=== PATIENT | female | born 1995 | race African-American/Black ===

== ENCOUNTER 2016-11-14 19:30 | Emergency (ER) | payer MEDICAID, OTHER ==
[~2016-11-14] VITALS: Ht 167.6 cm; Wt 95.0 kg
[2016-11-14] MEDS ORDERED: ACETAMINOPHEN 325MG TABLET PO STA (23:23)
[2016-11-14 23:53] VITALS: BP 126/75
[2016-11-15 00:05] LABS: BASOPHILS % 0.9 % (0.0-2.0); EOSINOPHILS % 0.9 % (0.0-5.0); HEMATOCRIT. 27.8 % (36.0-48.0); HEMOGLOBIN. 8.3 g/dL (12.0-16.0); LYMPHOCYTES % 30.4 % (20.0-50.0); MEAN CORPUSCULAR HEMOGLOBIN 20.4 pg (28.0-32.0); MEAN CORPUSCULAR VOLUME 67.8 fL (81.0-99.0); MEAN PLATELET VOLUME 7.5 fl (7.4-10.4); NEUTROPHILS % 60.8 % (40.0-76.0); PLATELET 353 x1000/uL (130-400); RED CELL DISTRIBUTION WIDTH 17.6 % (11.6-14.6)
[2016-11-15 00:09] LABS: CHLORIDE 109 mEq/L (98-107)
[2016-11-15 00:15] LABS: CARBON DIOXIDE 26 mEq/L (21-32)
[2016-11-15 00:58] LABS: CLARITY URINE TURBID (CLEAR); COLOR URINE YELLOW (YELLOW); GLUCOSE URINE TRACE (NEGATIVE); KETONES URINE NEGATIVE (NEGATIVE); LEUKOCYTE ESTERASE URINE TRACE (NEGATIVE); NITRITE URINE NEGATIVE (NEGATIVE); OCCULT BLOOD URINE 2+ (NEGATIVE); PROTEIN URINE NEGATIVE (NEGATIVE); SPECIFIC GRAVITY URINE 1.022 (1.005-1.030)
== END 2016-11-15 02:33 | disposition home or self-care (01) ==
LOC: ER 19:42
DX: N39.0 Urinary tract infection, site not specified (principal); R53.1 Weakness; R03.0 Elevated blood-pressure reading, without diagnosis of hypertension; D64.9 Anemia, unspecified; Z87.442 Personal history of urinary calculi; Z86.59 Personal history of other mental and behavioral disorders
CPT/HCPCS: 36415; 76770; 80048; 81001; 81025; 85025; 99285

== ENCOUNTER 2018-10-06 13:57 | Emergency (ER) | payer MEDICAID, OTHER ==
[~2018-10-06] VITALS: Ht 172.7 cm; Wt 82.0 kg
[2018-10-06] MEDS ORDERED: IBUPROFEN 600MG TABLET PO STA (14:45)
[2018-10-06] MEDS ORDERED: SODIUM CHLORIDE 0.9% 1,000 ML IV ONE (14:45)
[2018-10-06 15:16] LABS: CHLORIDE 106 mEq/L (98-107)
[2018-10-06 15:21] LABS: CLARITY URINE CLEAR (CLEAR); COLOR URINE YELLOW (YELLOW); KETONES URINE TRACE (NEGATIVE); LEUKOCYTE ESTERASE URINE NEGATIVE (NEGATIVE); NITRITE URINE NEGATIVE (NEGATIVE); OCCULT BLOOD URINE NEGATIVE (NEGATIVE); PROTEIN URINE NEGATIVE (NEGATIVE); SPECIFIC GRAVITY URINE 1.029 (1.005-1.030); UROBILINOGEN URINE 0.2 E.U./dL (0.2-1.0)
[2018-10-06 15:22] LABS: BASOPHILS % 0.3 % (0.0-2.0); EOSINOPHILS % 0.3 % (0.0-5.0); HEMATOCRIT. 29.9 % (36.0-48.0); HEMOGLOBIN. 9.1 g/dL (12.0-16.0); LYMPHOCYTES % 20.6 % (20.0-50.0); MEAN CORPUSCULAR VOLUME 69.3 fL (81.0-99.0); MEAN PLATELET VOLUME 7.2 fl (7.4-10.4); NEUTROPHILS % 73.8 % (40.0-76.0); PLATELET 437 x1000/uL (130-400); RED BLOOD CELL COUNT 4.32 mill/uL (4.2-5.4); RED CELL DISTRIBUTION WIDTH 17.6 % (11.6-14.6)
[2018-10-06 16:45] VITALS: BP 121/60
[2018-10-06 17:19] LABS: PLATELET ESTIMATE INCREASED
== END 2018-10-06 17:08 | disposition home or self-care (01) ==
LOC: ER 13:57
DX: R55 Syncope and collapse (principal); F41.9 Anxiety disorder, unspecified; Z87.440 Personal history of urinary (tract) infections
CPT/HCPCS: 36415; 80053; 81003; 81025; 85025; 93005; 96360; 99284; J7030

== ENCOUNTER 2020-07-22 22:24 | Emergency (ER) | payer MEDICAID ==
[~2020-07-22] VITALS: Ht 167.6 cm; Wt 102.4 kg
[2020-07-22 22:41] VITALS: BP 134/107
[2020-07-22] MEDS ORDERED: BACITRACIN ZINC OINT UDPKT TOP ONE (23:30)
[2020-07-22] MEDS ORDERED: BO1 TP (23:48)
[2020-07-22] MEDS ORDERED: IBUP-2029 MT (23:49)
[2020-07-23] MEDS ORDERED: BACITRACIN ZINC OINT UDPKT TOP ONE
== END 2020-07-23 00:07 | disposition home or self-care (01) ==
LOC: ER 22:24
DX: S20.111A Abrasion of breast, right breast, initial encounter (principal); F41.9 Anxiety disorder, unspecified; D64.9 Anemia, unspecified; X58.XXXA Exposure to other specified factors, initial encounter; Y93.89 Activity, other specified; Y92.9 Unspecified place or not applicable
CPT/HCPCS: 99282